=== PATIENT | female | born 1990 | race American Indian/Alaskan Native ===

== ENCOUNTER 2018-08-29 08:14 | Emergency (ER) | payer MEDICARE ==
[2018-08-29 08:20] VITALS: BP 135/92
[2018-08-29] MEDS ORDERED: TORADOL IM ONE (10:02)
[2018-08-29] MEDS ORDERED: SOLU-Medrol IM ONE (10:02)
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
[2018-08-29 11:02] LABS: HCG Qualitative,Urine Negative (Negative)
[2018-08-29 11:04] LABS: Bilirubin,Urine NEG (Negative); Blood,Urine SM (Negative); Color,Urine Yellow (Yellow); Mucus,Urine FEW /HPF; Protein,Urine <15 mg/dL mg/dL (Negative); Urobilinogen,Urine < 2.0 mg/dL (<2.0); WBC,Urine < 1.0 /HPF (0.0-6.0)
== END 2018-08-29 11:49 | disposition home or self-care (01) ==
LOC: ED 08:14
DX: M54.5 Low back pain (principal); G89.29 Other chronic pain; J45.909 Unspecified asthma, uncomplicated; G43.909 Migraine, unspecified, not intractable, without status migrainosus; K21.9 Gastro-esophageal reflux disease without esophagitis; Z88.6 Allergy status to analgesic agent; Z91.018 Allergy to other foods; Z88.5 Allergy status to narcotic agent
CPT/HCPCS: 81001; 81025; 96372; 99283; J1885; J2920

== ENCOUNTER 2020-12-21 09:51 | Emergency (ER) | payer MEDICARE ==
--- NOTE | 2020-12-21 10:29 | Event Note ---
ED Screening Note Date of service: 12/21/20 Time: 10:25 ED Screening Note: Pt presents with c/o right lower quadrant pain as well as right buttocks pain radiating into her thigh. She states it started couple days ago. She reports associated urinary frequency, nausea and vomiting. She states she is not sure if she is as she had a positive home preg test but then she f/u at a local clinic and preg test was negative. She states her lmc was december 01 and was nl. She states she is DM but not currently on any medications to control her blood sugar. She states she was having lots of side affects from the meds so she is watching her diet. She denies hx DKA. Pt BS in triage 165 This initial assessment/diagnostic orders/clinical plan/treatment(s) is/are subject to change based on patients health status, clinical progression and re- assessment by fellow clinical providers in the ED. Further treatment and workup at subsequent clinical providers discretion. Patient/guardian urged not to elope from the ED as their condition may be serious if not clinically assessed and managed. Initial orders include: labs
[2020-12-21 11:29] LABS: Basophils % (Auto) 0.4 % (0.0-1.8); Eosinophils # (Auto) 0.1 K/mm3 (0.0-0.4); Eosinophils % (Auto) 0.6 % (0.0-4.3); Hematocrit 44.6 % (30.3-42.9); Hemoglobin 14.6 gm/dl (10.1-14.3); Lymphocytes # (Auto) 2.7 K/mm3 (1.2-5.4); Lymphocytes % (Auto) 34.6 % (13.4-35.0); Mean Corpuscular HGB Conc 33 % (30-34); Mean Corpuscular Volume 89 fl (79-97); Monocytes # (Auto) 0.5 K/mm3 (0.0-0.8); Monocytes % (Auto) 5.8 % (0.0-7.3); Platelet Count 289 K/mm3 (140-440); Red Blood Count 4.99 M/mm3 (3.65-5.03); Red Cell Distribution Width 14.1 % (13.2-15.2)
--- NOTE | 2020-12-21 11:29 | Emergency Department Report ---
ED Abdominal Pain HPI - General Chief Complaint: Abdominal Pain Stated Complaint: RIGHT HIP PAIN Time Seen by Provider: 12/21/20 10:53 Source: patient Mode of arrival: Ambulatory Limitations: No Limitations - History of Present Illness Initial Comments: 30-year-old -[place] female presents to the emergency room complaining of right upper and lower quadrant abdominal pain for 1 week. Patient states that the pain radiates down her hip and thigh. She complains of nausea and vomiting. Last menstrual period was December 01. She is 5 para 2. Patient states that the pain is sharp and is constant no alleviating factors. Aggravating factors include movement and palpation. Patient states her primary care provider is at [facility]. She also reports that she had one positive test in 1 - test recently. MD Complaint: abdominal pain Onset/Timin -: week(s) Location: RUQ, RLQ Radiation: R flank, other (Right thigh and hip) Severity: severe Quality: stabbing, sharp Consistency: constant Improves With: nothing Worsens With: movement Associated Symptoms: nausea, vomiting, fever. denies: diarrhea, constipation, dysuria, hematemesis, hematochezia - Related Data LMP Date: 12/01/20 Home Medications Medication Instructions Recorded Confirmed Last Taken ALBUTEROL NEB's [Proventil 0.083% 2.5 mg IH Q4-6H PRN 06/30/14 09/03/16 1 Day Ago NEBS] ~09/02/16 Acetaminophen [Non-Aspirin] 325 mg PO BID PRN 06/30/14 09/03/16 1 Week Ago ~08/27/16 Albuterol Mdi (or & Nicu Only) 2 puff IH Q4-6H PRN 06/30/14 09/03/16 1 Day Ago [ProAir HFA Inhaler] ~09/02/16 Azelastine 0.1% (Nf) [Astelin (Nf)] 2 sprays NS QHS 06/30/14 09/03/16 1 Day Ago ~09/02/16 Budesoni/Formotero 160-4.5(Nf) 2 puff IH BID 06/30/14 09/03/16 1 Day Ago [Symbicort 160-4.5 (Nf)] ~09/02/16 EPINEPHrine (NF) [Epipen (Nf)] 0.3 mg IM PRN PRN 06/30/14 09/03/16 1 Day Ago ~09/02/16 Esomeprazole Magnesium [NexIUM] 40 mg PO QDAY 06/30/14 09/03/16 1 Day Ago ~09/02/16 Fexofenadine/Pseudoephedrine 1 each PO QDAY 06/30/14 09/03/16 1 Day Ago [Yissel-D 24 Hour Tablet] ~09/02/16 Fluticasone [Flonase] 2 sprays INNOSTRIL QDAY 06/30/14 09/03/16 1 Day Ago ~09/02/16 Montelukast Sodium [Singulair] 10 mg PO BID 06/30/14 09/03/16 1 Day Ago ~09/02/16 raNITIdine HCL [Ranitidine 150mg 150 mg PO BID 06/30/14 09/03/16 1 Month Ago Cap] ~08/06/16 Previous Rx's Medication Instructions Recorded Last Taken Type ALBUTEROL NEB's [Proventil] 2.5 mg IH TID PRN #1 box 09/13/15 1 Day Ago Rx ~09/02/16 Azithromycin [Zithromax Z-DONNIE] 0 mg PO DAILY #6 tab 09/13/15 1 Month Ago Rx ~08/06/16 Promethazine Dm (Nf) [Phenergan Dm 5 ml PO Q6H PRN #120 09/13/15 Unknown Rx 6.25/15 mg 5 ml] predniSONE [Deltasone] 40 mg PO QDAY #10 tab 09/13/15 Unknown Rx HYDROcodone/HOMATROP 5-1.5 5 ml PO Q4HR PRN #120 ml 09/04/16 Unknown Rx [HYDROcodone-Homatropin 5-1.5 mg per 5 ML] Prednisone [predniSONE 5 mg (6-Day 5 mg PO .TAPER #1 tab.ds.pk 09/04/16 Unknown Rx Pack, 21 Tabs)] levoFLOXacin [Levaquin TAB] 500 mg PO QDAY #3 tablet 09/04/16 Unknown Rx HYDROcodone/APAP 5-325 [[place] 1 each PO Q6HR PRN #10 tablet 08/29/18 Unknown Rx 5/325] Sulfamethoxazole/Trimethoprim 1 each PO BID #14 tablet 08/29/18 Unknown Rx [Bactrim DS TAB] Tizanidine HCl [Zanaflex] 2 mg PO TID PRN #30 capsule 08/29/18 Unknown Rx Allergies Allergy/AdvReac Type Severity Reaction Status Date / Time aspirin Allergy INDUCES Verified 08/29/18 08:17 ASTHMA ATTACK butalbital [From Fioricet] Allergy BECOMES Verified 08/29/18 08:17 UNRESPONSIVE caffeine [From Fioricet] Allergy BECOMES Verified 08/29/18 08:17 UNRESPONSIVE tramadol HCl [From Ultracet] Allergy HALLUCINATIONS, Verified 08/29/18 08:17 SKIN SIMMONS ED Review of Systems ROS: Stated complaint: RIGHT HIP PAIN Other details as noted in HPI Comment: All other systems reviewed and negative ED Past Medical Hx - Past Medical History Previous Medical History?: Yes Hx Congestive Heart Failure: No Hx Diabetes: Yes Hx GERD: Yes Hx Renal Disease: No Hx Headaches / Migraines: Yes (MIGRAINES) Hx Asthma: Yes (SINCE A CHILD, [facility]) Hx COPD: No Additional medical history: BRONCHIAL MALACIA; vocal cord dysfunction - Surgical History Past Surgical History?: Yes Additional Surgical History: X 2 - Social History Smoking Status: Never Smoker Substance Use Type: None - Medications Home Medications: Home Medications Medication Instructions Recorded Confirmed Last Taken Type ALBUTEROL NEB's [Proventil 0.083% 2.5 mg IH Q4-6H PRN 06/30/14 09/03/16 1 Day Ago History NEBS] ~09/02/16 Acetaminophen [Non-Aspirin] 325 mg PO BID PRN 06/30/14 09/03/16 1 Week Ago History ~08/27/16 Albuterol Mdi (or & Nicu Only) 2 puff IH Q4-6H PRN 06/30/14 09/03/16 1 Day Ago History [ProAir HFA Inhaler] ~09/02/16 Azelastine 0.1% (Nf) [Astelin (Nf)] 2 sprays NS QHS 06/30/14 09/03/16 1 Day Ago History ~09/02/16 Budesoni/Formotero 160-4.5(Nf) 2 puff IH BID 06/30/14 09/03/16 1 Day Ago History [Symbicort 160-4.5 (Nf)] ~09/02/16 EPINEPHrine (NF) [Epipen (Nf)] 0.3 mg IM PRN PRN 06/30/14 09/03/16 1 Day Ago History ~09/02/16 Esomeprazole Magnesium [NexIUM] 40 mg PO QDAY 06/30/14 09/03/16 1 Day Ago History ~09/02/16 Fexofenadine/Pseudoephedrine 1 each PO QDAY 06/30/14 09/03/16 1 Day Ago History [Yissel-D 24 Hour Tablet] ~09/02/16 Fluticasone [Flonase] 2 sprays INNOSTRIL QDAY 06/30/14 09/03/16 1 Day Ago History ~09/02/16 Montelukast Sodium [Singulair] 10 mg PO BID 06/30/14 09/03/16 1 Day Ago History ~09/02/16 raNITIdine HCL [Ranitidine 150mg 150 mg PO BID 06/30/14 09/03/16 1 Month Ago History Cap] ~08/06/16 ALBUTEROL NEB's [Proventil] 2.5 mg IH TID PRN #1 box 09/13/15 09/03/16 1 Day Ago Rx ~09/02/16 Azithromycin [Zithromax Z-DONNIE] 0 mg PO DAILY #6 tab 09/13/15 09/03/16 1 Month Ago Rx ~08/06/16 Promethazine Dm (Nf) [Phenergan Dm 5 ml PO Q6H PRN #120 09/13/15 09/03/16 Unknown Rx 6.25/15 mg 5 ml] predniSONE [Deltasone] 40 mg PO QDAY #10 tab 09/13/15 09/03/16 Unknown Rx HYDROcodone/HOMATROP 5-1.5 5 ml PO Q4HR PRN #120 ml 09/04/16 Unknown Rx [HYDROcodone-Homatropin 5-1.5 mg per 5 ML] Prednisone [predniSONE 5 mg (6-Day 5 mg PO .TAPER #1 tab.ds.pk 09/04/16 Unknown Rx Pack, 21 Tabs)] levoFLOXacin [Levaquin TAB] 500 mg PO QDAY #3 tablet 09/04/16 Unknown Rx HYDROcodone/APAP 5-325 [[place] 1 each PO Q6HR PRN #10 tablet 08/29/18 Unknown Rx 5/325] Sulfamethoxazole/Trimethoprim 1 each PO BID #14 tablet 08/29/18 Unknown Rx [Bactrim DS TAB] Tizanidine HCl [Zanaflex] 2 mg PO TID PRN #30 capsule 08/29/18 Unknown Rx ED Physical Exam - General Limitations: No Limitations General appearance: alert, other (Appears uncomfortable) - Head Head exam: Present: atraumatic, normocephalic - Eye Eye exam: Present: normal appearance - ENT ENT exam: Present: mucous membranes moist, normal external ear exam - Neck Neck exam: Present: normal inspection, full ROM - Respiratory Respiratory exam: Present: normal lung sounds bilaterally. Absent: respiratory distress, chest wall tenderness, accessory muscle use - Cardiovascular Cardiovascular Exam: Present: regular rate, normal rhythm. Absent: systolic murmur, diastolic murmur, rubs, gallop - GI/Abdominal GI/Abdominal exam: Present: soft, tenderness, guarding, normal bowel sounds - Expanded Lower Extremity Exam Right Hip exam: Present: full ROM, tenderness Upper Leg exam: Present: full ROM, tenderness Knee exam: Present: normal inspection Lower Leg exam: Present: normal inspection Ankle exam: Present: normal inspection Foot/Toe exam: Present: normal inspection Neuro vascular tendon exam: Present: no vascular compromise - Back Exam Back exam: Present: full ROM - Neurological Exam Neurological exam: Present: alert, oriented X3 - Psychiatric Psychiatric exam: Present: normal affect, normal mood - Skin Skin exam: Present: warm, dry, intact, normal color. Absent: rash ED Course Vital Signs 12/21/20 10:18 Temperature 98.6 F Pulse Rate 76 Respiratory 16 Rate Blood Pressure 134/88 O2 Sat by Pulse 100 Oximetry ED Medical Decision Making - Lab Data Result diagrams: 12/21/20 11:08 12/21/20 11:08 - Radiology Data Radiology results: report reviewed [facility] [address] [place] [address] Cat Scan Report Signed Patient: DA JERONIMO MR#: [id number] : 1990 Acct:[id number] Age/Sex: 30 / F ADM Date: 12/21/20 Loc: ED Attending Dr: Ordering Physician: RADHA KING Date of Service: 12/21/20 Procedure(s): CT abdomen pelvis w con Accession Number(s): [id number] cc: BRITTNEY Saxena [facility] HI CT ABDOMEN AND PELVIS WITH CONTRAST INDICATION / CLINICAL INFORMATION: LUQ pain and tenderness. OMNI 300 100 ML . TECHNIQUE: Axial CT images were obtained through the abdomen and pelvis after 100 cc IV contrast. Sagittal and coronal reformatted images. All CT scans at this location are performed using CT dose reduction for ALARA by means of automated exposure control. COMPARISON: None available. FINDINGS: LOWER CHEST: No significant abnormality. LIVER: No significant abnormality. GALLBLADDER: No significant abnormality. BILE DUCTS: No significant abnormality. PANCREAS: No significant abnormality. SPLEEN: No significant abnormality. ADRENALS: No significant abnormality. RIGHT KIDNEY and URETER: No significant abnormality. LEFT KIDNEY and URETER: No significant abnormality. STOMACH and SMALL BOWEL: No significant abnormality. COLON: No significant abnormality. APPENDIX: Not confidently identified, correlate with surgical history. PERITONEUM: No free fluid. No free air. No fluid collection. LYMPH NODES: No significant adenopathy. AORTA and ARTERIES: No significant abnormality. IVC and VEINS: No significant abnormality. URINARY BLADDER: No significant abnormality. REPRODUCTIVE ORGANS: A 1.8 cm left ovarian cyst is identified. The uterus and right ovary are unremarkable. ADDITIONAL FINDINGS: None. SKELETAL SYSTEM: No significant abnormality. IMPRESSION: No acute process is identified. No clear explanation for left upper quadrant abdominal pain. 1.8 cm left ovarian cyst. Signer Name: Charles Green Jr, MD Signed: 12/21/2020 3:18 PM Workstation Name: [id number] Transcribed By: TTR Dictated By: CHARLES GREEN JR, MD Electronically Authenticated By: CHARLES GREEN JR, MD Signed Date/Time: 12/21/20 151 DD/ 14 TD/TT: Print Cancel - Medical Decision Making 30-year-old -[place] female presents to the emergency room complaining of right upper and lower quadrant abdominal pain for 1 week. Patient states that the pain radiates down her hip and thigh. She complains of nausea and vomiting. Last menstrual period was December 01-. She is 5 para 2. Patient states that the pain is sharp and is constant no alleviating factors. Aggravating factors include movement and palpation. Patient states her primary care provider is at [facility]. She also reports that she had one positive test in 1 - test recently. CBC CMP urinalysis serum hCG. Acetaminophen 1 g p.o. for pain management. Patient has multiple allergies to tramadol and NSAIDs. Labs are within normal limits. CT of abdomen with contrast shows no acute abnormalities. Does show a 1.8 centimeter left ovarian cyst. test is negative. Critical care attestation.: If time is entered above; I have spent that time in minutes in the direct care of this critically ill patient, excluding procedure time. ED Disposition Clinical Impression: Abdominal pain Qualifiers: Abdominal location: right upper quadrant Qualified Code(s): R10.11 - Right upper quadrant pain Disposition: DC- TO HOME OR SELFCARE Is pt being admited?: No Does the pt Need Aspirin: No Condition: Stable Instructions: Abdominal Pain (ED) Additional Instructions: Lab work is unremarkable. Negative test by blood. CT scan is negative for any acute abnormalities it does show that you have a 1.8 cm left ovarian cyst Referrals: DEMETRIABLAUVELT [Primary Care Provider] - 3-5 Days Forms: Work/School Release Form(ED)
[2020-12-21 11:52] LABS: Alanine Aminotransferase 9 units/L (7-56); Albumin 4.2 g/dL (3.9-5); Blood Urea Nitrogen 13 mg/dL (7-17); Calcium 9.3 mg/dL (8.4-10.2); Hemolysis Index 29
[2020-12-21 11:53] LABS: BUN/Creatinine Ratio 26
[2020-12-21] MEDS ORDERED: SODIUM CHLORIDE 0.9% 1000 ML 1,000 ML IV ONE (12:51)
[2020-12-21] MEDS ORDERED: ACETAMINOPHEN 500 MG TAB PO ONE (12:52)
[2020-12-21 13:04] LABS: Bacteria,Urine 1+ /HPF (Negative); Bilirubin,Urine NEG (Negative); Blood,Urine SM (Negative); Color,Urine Yellow (Yellow); Mucus,Urine FEW /HPF; Protein,Urine <15 mg/dL mg/dL (Negative); Urobilinogen,Urine < 2.0 mg/dL (<2.0); WBC,Urine < 1.0 /HPF (0.0-6.0)
--- NOTE | 2020-12-21 15:22 | Cat Scan Report ---
CT ABDOMEN AND PELVIS WITH CONTRAST INDICATION / CLINICAL INFORMATION: LUQ pain and tenderness. OMNI 300 100 ML . TECHNIQUE: Axial CT images were obtained through the abdomen and pelvis after 100 cc IV contrast. Sagittal and c oronal reformatted images. All CT scans at this location are performed using CT dose reduction for AL [place]OLB[place]O by means of automated exposure control. COMPARISON: None available. FINDINGS: LOWER CHEST: No significant abnormality. LIVER: No significant abnormality. GALLBLADDER: No significant abnormality. BILE DUCTS: No significant abnormality. PANCREAS: No significant abnormality. SPLEEN: No significant abnormality. ADRENALS: No significant abnormality. RIGHT KIDNEY and URETER: No significant abnormality. LEFT KIDNEY and URETER: No significant abnormality. STOMACH and SMALL BOWEL: No significant abnormality. COLON: No significant abnormality. APPENDIX: Not confidently identified, correlate with surgical history. PERITONEUM: No free fluid. No free air. No fluid collection. LYMPH NODES: No significant adenopathy. AORTA and ARTERIES: No significant abnormality. IVC and VEINS: No significant abnormality. URINARY BLADDER: No significant abnormality. REPRODUCTIVE ORGANS: A 1.8 cm left ovarian cyst is identified. The uterus and right ovary are unremar kable. ADDITIONAL FINDINGS: None. SKELETAL SYSTEM: No significant abnormality. IMPRESSION: No acute process is identified. No clear explanation for left upper quadrant abdominal pain. 1.8 cm left ovarian cyst. Signer Name: Charles Green Jr, MD Signed: 12/21/2020 3:18 PM Workstation Name: [id number]
[2020-12-21 16:37] VITALS: BP 161/98
== END 2020-12-21 16:30 | disposition home or self-care (01) ==
LOC: ED 09:51
DX: R10.11 Right upper quadrant pain (principal); R10.31 Right lower quadrant pain; R11.2 Nausea with vomiting, unspecified; E11.9 Type 2 diabetes mellitus without complications; K21.9 Gastro-esophageal reflux disease without esophagitis; G43.909 Migraine, unspecified, not intractable, without status migrainosus; J45.909 Unspecified asthma, uncomplicated; Z98.890 Other specified postprocedural states; Z79.2 Long term (current) use of antibiotics; Z79.899 Other long term (current) drug therapy; Z88.8 Allergy status to other drugs, medicaments and biological substances
CPT/HCPCS: 36415; 74177; 80053; 81001; 82962; 83690; 84703; 85025; 96360; 99284; J7030; Q9967